=== PATIENT | female | born 1965 | race Caucasian/White ===

== ENCOUNTER 2018-08-13 00:26 | Emergency (ER) | payer BC ==
[~2018-08-13] VITALS: Ht 172.7 cm; Wt 55.8 kg
--- NOTE | 2018-08-13 00:55 | NUR ---
TO BED 1 AMBULATORY C/O DOG BITE TO BILATERAL HANDS XG [employer]. PENDING ER MD BONE.
[2018-08-13] MEDS ORDERED: IBUPROFEN 400 MG TABLET ONE (01:41)
[2018-08-13] MEDS ORDERED: AMOX/CLAVULANATE 875 MG TABLET ONE (01:42)
[2018-08-13] MEDS ORDERED: TDAP [DIPH/PERTUSSIS/TET] 0.5 ML VIAL IM ONE ×2 (01:42→02:00)
--- NOTE | 2018-08-13 01:50 | NUR ---
Patient discharged to home in stable condition. Written and verbal after care instructions given. Patient verbalizes understanding of instruction.
[2018-08-13 01:52] VITALS: BP 98/61
[2018-08-13] MEDS ORDERED: AMOX/CLAVULANATE 875 MG TABLET PO ONE (02:00)
[2018-08-13] MEDS ORDERED: IBUPROFEN 400 MG TABLET PO ONE (02:00)
== END 2018-08-13 01:57 | disposition home or self-care (01) ==
LOC: ER 00:39
DX: S61.052A Open bite of left thumb without damage to nail, initial encounter (principal); S61.051A Open bite of right thumb without damage to nail, initial encounter; L08.9 Local infection of the skin and subcutaneous tissue, unspecified; F10.10 Alcohol abuse, uncomplicated; Y90.9 Presence of alcohol in blood, level not specified; W54.0XXA Bitten by dog, initial encounter; Y93.89 Activity, other specified; Y92.89 Other specified places as the place of occurrence of the external cause; Y99.8 Other external cause status
CPT/HCPCS: 90471; 90715; 99283; A4606; Z7610